=== PATIENT | female | born 1980 | race Caucasian/White ===

== ENCOUNTER 2017-02-28 01:06 | Emergency (ER) | payer MEDICAID, OTHER ==
[~2017-02-28] VITALS: Ht 162.6 cm; Wt 90.9 kg
[~2017-02-28 01:06] MED LIST: VENL75TA2 PO
[2017-02-28 02:56] LABS: BASO % 0.4 % (0.0-1.0); EOS # 0.2 K/mm3 (0.0-0.50); EOS % 2.2 % (0.0-3.0); LARGE UNSTAINED CELL # 0.1 K/mm3 (0.0-0.4); LARGE UNSTAINED CELL % 1.1 % (0.0-4.0); LYMPH % 33.5 % (24.0-44.0); MEAN CORPUSCULAR HEMOGLOBIN 33.6 pg (27.0-33.0); MEAN CORPUSCULAR VOLUME 98.8 fl (80.0-96.0); MONO # 0.6 K/mm3 (0.0-0.8); NEUTROPHILS # 6.7 K/mm3 (1.8-7.7); NEUTROPHILS % 57.9 % (36.0-66.0); PLATELET COUNT, AUTOMATED 364 k/mm3 (150-450); RED CELL DISTRIBUTION WIDTH 12.1 % (11.5-14.5); WHITE BLOOD COUNT 11.5 K/mm3 (4.0-10.0)
[2017-02-28] MEDS ORDERED: KETOROLAC 30 MG/ML VIAL (J1885) IV ONE (03:00)
[2017-02-28] MEDS ORDERED: MORPHINE 4 MG/ML 1ML SYRINGE IV PRN (03:00)
[2017-02-28] MEDS ORDERED: NS 1,000 ML IV ONE (03:00)
[2017-02-28] MEDS ORDERED: ONDANSETRON 4MG/2ML VIAL (J2405) IV ONE (03:00)
[2017-02-28 03:06] LABS: ALBUMIN 3.7 GM/DL (3.2-5.2); ALBUMIN/GLOBULIN RATIO 1.19 (1.00-1.93); ALKALINE PHOSPHATASE 84 U/L (45-117); ALT/SGPT 55 U/L (12-78); ANION GAP 10 MEQ/L (8-16); AST/SGOT 29 U/L (15-37); BILIRUBIN,DIRECT < 0.1 MG/DL (0.0-0.2); BILIRUBIN,TOTAL 0.2 MG/DL (0.2-1.0); BLOOD UREA NITROGEN 7 MG/DL (7-18); CALCIUM LEVEL 8.8 MG/DL (8.5-10.1); CARBON DIOXIDE LEVEL 23 MEQ/L (21-32); CHLORIDE LEVEL 108 MEQ/L (98-107); CREATININE FOR GFR 0.78 MG/DL (0.55-1.02); GLOMERULAR FILTRATION RATE > 60.0 (>60); GLUCOSE, FASTING 121 MG/DL (70-105); SODIUM LEVEL 141 MEQ/L (136-145); TOTAL PROTEIN 6.8 GM/DL (6.4-8.2)
[2017-02-28] MEDS ORDERED: FLOM5CAP PO (04:40)
[2017-02-28] MEDS ORDERED: PERC5TAB12 PO (04:40)
[2017-02-28] MEDS ORDERED: CIPR-249 PO (04:40)
[2017-02-28] MEDS ORDERED: TAMSULOSIN 0.4 MG CAP PO ONE (04:45)
[2017-02-28] MEDS ORDERED: OXYCODONE/APAP 5MG/325MG(BULK FOR ED) 1 TABLET PO ONE (04:45)
[2017-02-28 04:51] VITALS: BP 130/93
--- NOTE | 2017-03-01 10:39 | REPUSA ---
CLINICAL HISTORY: Abdominal pain. TECHNIQUE: Multiple axial, sagittal and coronal CT images were obtained through the abdomen and pelvi s without administration of oral or IV contrast material. COMMENTS: Comparison to the prior exam on 01/22/2013. 4.5 mm obstructing stone of the right ureter at L3. Mild right hydroureteronephrosis. Bilateral nonobstructing renal stones ranging in size between 3 and 11 mm. Thickened sigmoid colon. Sigmoid diverticulosis. Thickened bladder. The liver is of uniform attenuation without mass or defect. There is no intra or extrahepatic biliary ductal dilatation. The spleen is normal. The gallbladder is within normal limits. The pancreas is of normal contour and attenuation characteristics. There is no evidence of adrenal ma ss. There is no evidence for appendicitis. No evidence for small or large bowel obstruction. There is no evidence of abdominal ascites or lympha denopathy. There is no evidence of intrinsic or extrinsic bladder mass. There is no pelvic ascites or lymphadeno blanco. Images of the lung bases show no evidence of pleural or parenchymal mass. There are no pleural effusi ons. The bony structures are free of lytic or blastic lesions. Multilevel degenerative changes are seen in volving the thoracolumbar spine. Scattered calcifications are seen involving the aorta and major branches compatible with atherosclero sis. Fat containing umbilical hernia without incarceration. IMPRESSION: Obstructing stone of the right ureter at L3 level. Right hydroureteronephrosis. Thickened bladder. Thank you for your kind referral of this patient.
== END 2017-02-28 05:12 | disposition home or self-care (01) ==
LOC: M ED 01:06
DX: N20.1 Calculus of ureter (principal)
CPT/HCPCS: 36415; 74176; 80048; 80076; 81001; 83690; 85025; 87086; 93041; 96374; 96375; 99284; J1885; J2405

== ENCOUNTER → 2017-08-05 | Outpatient (CLI) | payer OTHER ==
[2017-08-05 14:03] LABS: BASO % 0.4 % (0.0-1.0); EOS # 0.2 10^3/uL (0.0-0.50); EOS % 1.8 % (0.0-3.0); HEMATOCRIT 44.5 % (36.0-47.0); HEMOGLOBIN 14.8 g/dl (12.0-16.0); IMMATURE GRANULOCYTE % 0.3 % (0-0); LYMPH # 3.2 10^3/uL (1.5-4.5); LYMPH % 29.8 % (24.0-44.0); MEAN CORPUSCULAR HEMOGLOBIN 33.4 pg (27.0-33.0); MEAN CORPUSCULAR HGB CONC 33.3 g/dl (32.0-36.5); MEAN CORPUSCULAR VOLUME 100.5 fl (80.0-96.0); MONO # 0.6 10^3/uL (0.0-0.8); NEUTROPHILS # 6.5 10^3/uL (1.8-7.7); NEUTROPHILS % 61.7 % (36.0-66.0); PLATELET COUNT, AUTOMATED 382 10^3/uL (150-450); RED BLOOD COUNT 4.43 10^6/uL (4.00-5.40); WHITE BLOOD COUNT 10.6 10^3/uL (4.0-10.0)
[2017-08-05 14:31] LABS: ALBUMIN 4.2 GM/DL (3.2-5.2); ALBUMIN/GLOBULIN RATIO 1.35 (1.00-1.93); ALKALINE PHOSPHATASE 88 U/L (45-117); ALT/SGPT 52 U/L (12-78); ANION GAP 6 MEQ/L (8-16); AST/SGOT 31 U/L (7-37); BILIRUBIN,TOTAL 0.6 MG/DL (0.2-1.0); BLOOD UREA NITROGEN 10 MG/DL (7-18); CARBON DIOXIDE LEVEL 27 MEQ/L (21-32); CHLORIDE LEVEL 105 MEQ/L (98-107); CREATININE FOR GFR 0.68 MG/DL (0.55-1.02); GLOMERULAR FILTRATION RATE > 60.0 (>60); GLUCOSE, FASTING 88 MG/DL (70-105); POTASSIUM SERUM 4.4 MEQ/L (3.5-5.1); SODIUM LEVEL 138 MEQ/L (136-145); THYROID STIMULATING HORMONE 0.845 uIU/ML (0.358-3.740); TOTAL PROTEIN 7.3 GM/DL (6.4-8.2)
[2017-08-06 14:16] LABS: ANTINUCLEAR ANTIBODIES DIRECT Negative (Negative)
== END ==
LOC: M SMT 08:59
DX: R53.83 Other fatigue (principal)
CPT/HCPCS: 84443

== ENCOUNTER → 2019-09-05 | Outpatient (REF) | payer OTHER ==
[~2019-09-05] MED LIST changes: +CIPR-249 PO; +FLOM0.4C39 PO; +PERC5TAB12 PO
[2019-09-05 13:11] LABS: BASO % 0.3 % (0.0-1.0); EOS # 0.1 10^3/uL (0.0-0.5); EOS % 1.5 % (0.0-3.0); HEMATOCRIT 44.6 % (36.0-47.0); HEMOGLOBIN 14.4 g/dl (12.0-15.5); LYMPH # 1.8 10^3/uL (1.5-5.0); LYMPH % 19.3 % (24.0-44.0); MEAN CORPUSCULAR HGB CONC 32.3 g/dl (32.0-36.5); MEAN CORPUSCULAR VOLUME 102.1 fl (80.0-96.0); MONO # 0.7 10^3/uL (0.0-0.8); NEUTROPHILS # 6.6 10^3/uL (1.5-8.5); NEUTROPHILS % 71.6 % (36.0-66.0); PLATELET COUNT, AUTOMATED 354 10^3/uL (150-450); RED BLOOD COUNT 4.37 10^6/uL (4.00-5.40); WHITE BLOOD COUNT 9.2 10^3/uL (4.0-10.0)
[2019-09-05 13:41] LABS: ALT/SGPT 37 U/L (12-78); BLOOD UREA NITROGEN 9 MG/DL (7-18); CALCIUM LEVEL 8.9 MG/DL (8.5-10.1); CARBON DIOXIDE LEVEL 27 MEQ/L (21-32); CHLORIDE LEVEL 105 MEQ/L (98-107); GLOMERULAR FILTRATION RATE > 60.0 (>60); GLUCOSE, FASTING 80 MG/DL (70-100); POTASSIUM SERUM 3.9 MEQ/L (3.5-5.1); SODIUM LEVEL 140 MEQ/L (136-145); TOTAL PROTEIN 6.7 GM/DL (6.4-8.2)
== END ==
LOC: M LABDRAW1 12:25
PROVIDERS: ATTEND Physician Assistant
DX: R53.83 Other fatigue (principal)

== ENCOUNTER → 2020-10-03 | Outpatient (REF) | payer OTHER | LOC: M LAB REF 17:10 | PROVIDERS: ATTEND Physician Assistant Medical | DX: N39.0 Urinary tract infection, site not specified (principal) ==

== ENCOUNTER → 2020-10-04 | Outpatient (CLI) | payer OTHER ==
--- NOTE | 2020-10-04 14:57 | REPMRS ---
Patient History The patient states she had a clinical breast exam in 08/2020. No known family history of cancer. No Hormone Replacement Therapy Digital Woman Screen Mammo: October 04, 2020 - Exam #: [id number] Bilateral CC and MLO view(s) were taken. Technologist: Kelly Agosto, Technologist No prior studies available for comparison. FINDINGS: There are scattered fibroglandular densities. The Volpara volumetric breast density category is: B. There is no evidence of dominant mass, architectural distortion, or grouped microcalcification typical of malignancy. 3-D tomosynthesis shows no additional findings. Assessment: BI-RADS/ACR category 1 mammogram. Negative Mammogram. Recommendation Routine screening mammogram of both breasts in 1 year (for women over age 40). This patient's [facility] Lifetime Breast Cancer RIsk is estimated at 11.4 %. This mammogram was interpreted with the aid of an FDA-approved computer-aided dectection system. Electronically Signed By: Harpreet Jean MD 10/04/20 [id number]
== END ==
LOC: M WHC 13:47
PROVIDERS: ATTEND Obstetrics & Gynecology
DX: Z12.31 Encounter for screening mammogram for malignant neoplasm of breast (principal)

== ENCOUNTER → 2021-08-12 | Outpatient (REF) | payer OTHER | LOC: M LAB REF 17:40 | PROVIDERS: ATTEND Nurse Practitioner Family | DX: R30.0 Dysuria (principal) ==

== ENCOUNTER → 2021-10-07 | Outpatient (REF) | payer OTHER | LOC: M LAB REF 16:52 | PROVIDERS: ATTEND Nurse Practitioner Family | DX: R35.0 Frequency of micturition (principal) ==

== ENCOUNTER → 2021-11-24 | Outpatient (REF) | payer OTHER | LOC: M LAB REF 16:43 | PROVIDERS: ATTEND Nurse Practitioner Family | DX: R35.0 Frequency of micturition (principal); N39.0 Urinary tract infection, site not specified ==

== ENCOUNTER → 2021-12-17 | Outpatient (REF) | payer OTHER ==
[2021-12-17 13:50] LABS: APPEARANCE, URINE HAZY (CLEAR); BACTERIA, URINE AUTO NEGATIVE (NEGATIVE); BILIRUBIN, URINE AUTO NEGATIVE (NEGATIVE); BLOOD, URINE BLOOD NEGATIVE (NEGATIVE); COLOR, URINE YELLOW (YELLOW); GLUCOSE, URINE (UA) AUTO NEGATIVE (NEGATIVE); KETONE, URINE AUTO NEGATIVE (NEGATIVE); LEUKOCYTE ESTERASE, URINE AUTO NEGATIVE (NEGATIVE); MUCUS, URINE SMALL (NEGATIVE); NITRITE, URINE AUTO NEGATIVE (NEGATIVE); PROTEIN, URINE AUTO NEGATIVE (NEGATIVE); RBC, URINE AUTO 0 /HPF (0-3); SPECIFIC GRAVITY URINE AUTO 1.018 (1.002-1.035); SQUAMOUS EPITHELIAL CELL UR AU 3 /HPF (0-6); UROBILINOGEN, URINE AUTO 0.2 mg/dL (0.0-2.0); WBC, URINE AUTO 1 /HPF (0-3)
== END ==
LOC: M SMT 12:57
PROVIDERS: ATTEND Nurse Practitioner Women's Health
DX: N39.0 Urinary tract infection, site not specified (principal)

== ENCOUNTER → 2021-12-24 | Outpatient (CLI) | payer OTHER | LOC: M PLAIMG 08:29 | PROVIDERS: ATTEND Nurse Practitioner Women's Health | DX: N20.0 Calculus of kidney (principal); N39.0 Urinary tract infection, site not specified; Z87.442 Personal history of urinary calculi ==

== ENCOUNTER → 2021-12-30 | Outpatient (REF) | payer OTHER ==
[2021-12-30 14:09] LABS: APPEARANCE, URINE CLOUDY (CLEAR); BACTERIA, URINE AUTO 2+ (NEGATIVE); BILIRUBIN, URINE AUTO NEGATIVE (NEGATIVE); BLOOD, URINE BLOOD 2+ (NEGATIVE); CALCIUM OXALATE CRYSTALS MODERATE; COLOR, URINE AMBER (YELLOW); GLUCOSE, URINE (UA) AUTO 3+ mg/dL (NEGATIVE); KETONE, URINE AUTO TRACE mg/dL (NEGATIVE); LEUKOCYTE ESTERASE, URINE AUTO 2+ (NEGATIVE); MUCUS, URINE MODERATE (NEGATIVE); NITRITE, URINE AUTO POSITIVE (NEGATIVE); PROTEIN, URINE AUTO 2+ mg/dL (NEGATIVE); RBC, URINE AUTO 97 /HPF (0-3); SPECIFIC GRAVITY URINE AUTO 1.022 (1.002-1.035); SQUAMOUS EPITHELIAL CELL UR AU 2 /HPF (0-6); WBC, URINE AUTO TNTC /HPF (0-3)
== END ==
LOC: M SMT 12:54
PROVIDERS: ATTEND Nurse Practitioner Women's Health
DX: R30.0 Dysuria (principal)

== ENCOUNTER → 2022-01-13 | Outpatient (REF) | payer OTHER ==
[2022-01-13 14:18] LABS: APPEARANCE, URINE HAZY (CLEAR); BACTERIA, URINE AUTO NEGATIVE (NEGATIVE); BILIRUBIN, URINE AUTO NEGATIVE (NEGATIVE); BLOOD, URINE BLOOD NEGATIVE (NEGATIVE); COLOR, URINE YELLOW (YELLOW); GLUCOSE, URINE (UA) AUTO NEGATIVE (NEGATIVE); KETONE, URINE AUTO NEGATIVE (NEGATIVE); LEUKOCYTE ESTERASE, URINE AUTO NEGATIVE (NEGATIVE); MUCUS, URINE SMALL (NEGATIVE); NITRITE, URINE AUTO NEGATIVE (NEGATIVE); PROTEIN, URINE AUTO NEGATIVE (NEGATIVE); RBC, URINE AUTO 0 /HPF (0-3); SPECIFIC GRAVITY URINE AUTO 1.009 (1.002-1.035); SQUAMOUS EPITHELIAL CELL UR AU 5 /HPF (0-6); UROBILINOGEN, URINE AUTO 0.2 mg/dL (0.0-2.0); WBC, URINE AUTO 2 /HPF (0-3)
== END ==
LOC: M SMT 12:59
PROVIDERS: ATTEND Nurse Practitioner Women's Health
DX: N39.0 Urinary tract infection, site not specified (principal)

== ENCOUNTER → 2022-02-02 | Outpatient (REF) | payer OTHER ==
[2022-02-02 13:32] LABS: APPEARANCE, URINE CLEAR (CLEAR); BACTERIA, URINE AUTO 2+ (NEGATIVE); BILIRUBIN, URINE AUTO NEGATIVE (NEGATIVE); BLOOD, URINE BLOOD 1+ (NEGATIVE); COLOR, URINE YELLOW (YELLOW); GLUCOSE, URINE (UA) AUTO NEGATIVE (NEGATIVE); KETONE, URINE AUTO NEGATIVE (NEGATIVE); LEUKOCYTE ESTERASE, URINE AUTO 2+ (NEGATIVE); MUCUS, URINE SMALL (NEGATIVE); NITRITE, URINE AUTO NEGATIVE (NEGATIVE); PROTEIN, URINE AUTO 1+ mg/dL (NEGATIVE); RBC, URINE AUTO 4 /HPF (0-3); SPECIFIC GRAVITY URINE AUTO 1.008 (1.002-1.035); SQUAMOUS EPITHELIAL CELL UR AU 2 /HPF (0-6); UROBILINOGEN, URINE AUTO 0.2 mg/dL (0.0-2.0); WBC, URINE AUTO 16 /HPF (0-3)
== END ==
LOC: M SMT 12:53
PROVIDERS: ATTEND Nurse Practitioner Women's Health
DX: R30.0 Dysuria (principal)

== ENCOUNTER → 2022-02-27 | Outpatient (REF) | payer OTHER ==
[2022-02-27 18:01] LABS: APPEARANCE, URINE HAZY (CLEAR); BACTERIA, URINE AUTO NEGATIVE (NEGATIVE); BILIRUBIN, URINE AUTO NEGATIVE (NEGATIVE); BLOOD, URINE BLOOD NEGATIVE (NEGATIVE); CALCIUM OXALATE CRYSTALS SMALL; COLOR, URINE YELLOW (YELLOW); GLUCOSE, URINE (UA) AUTO NEGATIVE (NEGATIVE); KETONE, URINE AUTO TRACE mg/dL (NEGATIVE); LEUKOCYTE ESTERASE, URINE AUTO NEGATIVE (NEGATIVE); MUCUS, URINE SMALL (NEGATIVE); NITRITE, URINE AUTO NEGATIVE (NEGATIVE); PROTEIN, URINE AUTO NEGATIVE (NEGATIVE); RBC, URINE AUTO 0 /HPF (0-3); SPECIFIC GRAVITY URINE AUTO 1.021 (1.002-1.035); SQUAMOUS EPITHELIAL CELL UR AU 3 /HPF (0-6); UROBILINOGEN, URINE AUTO 0.2 mg/dL (0.0-2.0); WBC, URINE AUTO 0 /HPF (0-3)
== END ==
LOC: M SMT 17:11
PROVIDERS: ATTEND Urology
DX: N39.0 Urinary tract infection, site not specified (principal)

== ENCOUNTER → 2022-06-04 | Outpatient (REF) | payer OTHER ==
[2022-06-04 12:52] LABS: CLOSTRIDIUM DIFFICILE PCR NEGATIVE (NEGATIVE)
== END ==
LOC: M LAB REF 09:23
PROVIDERS: ATTEND Internal Medicine Gastroenterology
DX: R19.7 Diarrhea, unspecified (principal)

== ENCOUNTER → 2022-06-09 | Outpatient (CLI) | payer OTHER | LOC: M LABSMTC 10:56 | PROVIDERS: ATTEND Anesthesiology | DX: Z01.812 Encounter for preprocedural laboratory examination (principal); Z11.52 Encounter for screening for COVID-19 ==

== ENCOUNTER 2022-06-12 09:43 | Day surgery (SDC) | payer OTHER ==
[~2022-06-12] VITALS: Ht 165.1 cm; Wt 89.8 kg
[2022-06-12] MEDS ORDERED: propofoL 500 MG/50 ML VIAL As Ordered ONE (12:29)
[2022-06-12] MEDS ORDERED: LIDOCAINE 2% 100MG/5ML SDV (FOR ANES.) As Ordered ONE (12:31)
[2022-06-12] MEDS ORDERED: fentaNYL 100 MCG/2 ML INJECTION As Ordered ONE (12:31)
[2022-06-12] MEDS ORDERED: ONDANSETRON 4MG 2ML VIAL As Ordered ONE (12:45)
[2022-06-12 13:58] VITALS: BP 131/83
== END 2022-06-12 14:09 | disposition home or self-care (01) ==
LOC: M OPP 09:43
PROVIDERS: ATTEND Internal Medicine Gastroenterology
DX: K63.5 Polyp of colon (principal); K52.9 Noninfective gastroenteritis and colitis, unspecified; K57.30 Diverticulosis of large intestine without perforation or abscess without bleeding; K64.8 Other hemorrhoids; K29.70 Gastritis, unspecified, without bleeding; K21.9 Gastro-esophageal reflux disease without esophagitis; F41.9 Anxiety disorder, unspecified; F32.A Depression, unspecified; F17.210 Nicotine dependence, cigarettes, uncomplicated; Z79.899 Other long term (current) drug therapy
CPT/HCPCS: 43239; 45380; 45385; 88305; J2405; J3010

== ENCOUNTER → 2022-07-16 | Outpatient (CLI) | payer OTHER ==
[2022-07-16 15:49] LABS: BLOOD UREA NITROGEN 11 MG/DL (9-23); CREATININE FOR GFR 0.58 MG/DL (0.55-1.30); GLOMERULAR FILTRATION RATE > 60.0 (>58)
== END ==
LOC: M PLALAB 11:35
PROVIDERS: ATTEND Internal Medicine Gastroenterology
DX: K86.81 Exocrine pancreatic insufficiency (principal)

== ENCOUNTER → 2022-08-12 | Outpatient (CLI) | payer OTHER ==
[~2022-08-12] MED LIST changes: +PROHANCE 279.3MG/ML 15ML VIAL ONE; +PROHANCE 279.3MG/ML 5ML VIAL ONE
== END ==
LOC: M PLAIMG 07:23
PROVIDERS: ATTEND Internal Medicine Gastroenterology
DX: R19.7 Diarrhea, unspecified (principal)
CPT/HCPCS: 74183; A9576

== ENCOUNTER → 2022-10-02 | Outpatient (CLI) | payer OTHER ==
[~2022-10-02] MED LIST changes: -PROHANCE 279.3MG/ML 15ML VIAL ONE; -PROHANCE 279.3MG/ML 5ML VIAL ONE
== END ==
LOC: M WHC 12:51
PROVIDERS: ATTEND Family Medicine
DX: Z12.31 Encounter for screening mammogram for malignant neoplasm of breast (principal)

== ENCOUNTER → 2022-11-06 | Outpatient (CLI) | payer OTHER ==
[2022-11-06 12:04] LABS: BASO % 0.3 % (0.0-1.0); EOS # 0.2 10^3/uL (0.0-0.5); EOS % 1.6 % (0.0-3.0); HEMATOCRIT 43.7 % (36.0-47.0); HEMOGLOBIN 14.4 g/dl (12.0-15.5); LYMPH # 3.2 10^3/uL (1.5-5.0); LYMPH % 33.8 % (24.0-44.0); MEAN CORPUSCULAR HEMOGLOBIN 32.7 pg (27.0-33.0); MEAN CORPUSCULAR VOLUME 99.1 fl (80.0-96.0); MONO # 0.6 10^3/uL (0.0-0.8); MONO % 6.2 % (2.0-8.0); NEUTROPHILS # 5.4 10^3/uL (1.5-8.5); NEUTROPHILS % 57.7 % (36.0-66.0); PLATELET COUNT, AUTOMATED 423 10^3/uL (150-450); RED BLOOD COUNT 4.41 10^6/uL (4.00-5.40); WHITE BLOOD COUNT 9.3 10^3/uL (4.0-10.0)
[2022-11-06 12:22] LABS: ALBUMIN 3.7 G/DL (3.2-5.2); ALKALINE PHOSPHATASE 58 U/L (46-116); ALT/SGPT 36 U/L (7.0-40); AST/SGOT 19 U/L (<34); BILIRUBIN,TOTAL 0.6 MG/DL (0.3-1.2); BLOOD UREA NITROGEN 9 MG/DL (9-23); CALCIUM LEVEL 9.2 MG/DL (8.5-10.1); CARBON DIOXIDE LEVEL 27 MMOL/L (20-31); CHLORIDE LEVEL 107 MMOL/L (98-107); CHOLESTEROL LEVEL 154 MG/DL (<200); CHOLESTEROL RISK RATIO 3.05 (<5); CREATININE FOR GFR 0.66 MG/DL (0.55-1.30); GLOMERULAR FILTRATION RATE > 60.0 (>58); GLUCOSE, FASTING 90 MG/DL (60-100); HDL CHOLESTEROL 50.4 MG/DL (>40); LDL CHOLESTEROL 87.2 MG/DL (<100); NON-HDL-C 103.6 MG/DL; POTASSIUM SERUM 4.2 MMOL/L (3.5-5.1); SODIUM LEVEL 141 MMOL/L (136-145); TOTAL PROTEIN 6.6 G/DL (5.7-8.2); TRIGLYCERIDES LEVEL 82 MG/DL (<150)
== END ==
LOC: M PLALAB 07:46
PROVIDERS: ATTEND Nurse Practitioner Family
DX: Z00.00 Encounter for general adult medical examination without abnormal findings (principal)

== ENCOUNTER → 2023-11-26 | Outpatient (CLI) | payer OTHER | LOC: M WHC 13:14 | PROVIDERS: ATTEND Registered Nurse | DX: Z12.31 Encounter for screening mammogram for malignant neoplasm of breast (principal) ==

== ENCOUNTER 2024-07-21 03:25 | Emergency (ER) | payer OTHER ==
[~2024-07-21] VITALS: Ht 165.1 cm; Wt 89.1 kg
[2024-07-21 03:29] VITALS: TEMP 96.8
[2024-07-21] MEDS ORDERED: VENL150C43 (03:30)
[2024-07-21] MEDS ORDERED: DEXTROAMP-AMPHETAMIN (03:30)
[2024-07-21] MEDS ORDERED: VENL37TA (03:30)
[2024-07-21] MEDS: KETOROLAC 30 MG/ML 1ML VIAL IV ONE (05:13)
[2024-07-21] MEDS: ONDANSETRON 4MG 2ML VIAL IV ONE (05:13)
[2024-07-21 05:30] LABS: BASO # 0.1 10^3/uL (0.0-0.2); BASO % 0.3 % (0.0-1.0); EOS # 0.1 10^3/uL (0.0-0.5); EOS % 0.7 % (0.0-3.0); HEMATOCRIT 43.1 % (36.0-47.0); HEMOGLOBIN 14.7 g/dl (12.0-15.5); LYMPH # 2.5 10^3/uL (1.5-5.0); LYMPH % 12.6 % (24.0-44.0); MEAN CORPUSCULAR HGB CONC 34.1 g/dl (32.0-36.5); MEAN CORPUSCULAR VOLUME 96.9 fl (80.0-96.0); MONO % 4.9 % (2.0-8.0); NEUTROPHILS # 16.2 10^3/uL (1.5-8.5); PLATELET COUNT, AUTOMATED 413 10^3/uL (150-450); RED BLOOD COUNT 4.45 10^6/uL (4.00-5.40)
[2024-07-21 05:58] LABS: BLOOD UREA NITROGEN 10 MG/DL (9-23); CALCIUM LEVEL 9.3 MG/DL (8.5-10.1); CARBON DIOXIDE LEVEL 24 MMOL/L (20-31); CHLORIDE LEVEL 108 MMOL/L (98-107); CREATININE FOR GFR 0.76 MG/DL (0.55-1.30); GLOMERULAR FILTRATION RATE > 60.0 (>58); GLUCOSE, FASTING 143 MG/DL (60-100); POTASSIUM SERUM 4.6 MMOL/L (3.5-5.1); SODIUM LEVEL 140 MMOL/L (136-145)
[2024-07-21 06:00] VITALS: BP 133/94; O2SAT 97
[2024-07-21] MEDS ORDERED: FLOM0.4C39 PO (06:22)
[2024-07-21] MEDS ORDERED: KETO10TAB PO (06:22)
[2024-07-21] MEDS ORDERED: CEPH500C PO (06:22)
[2024-07-21] MEDS ORDERED: ONDA-282 PO (06:22)
[2024-07-21] MEDS: TAMSULOSIN 0.4 MG CAP PO ONE (06:35)
[2024-07-21] MEDS: CEPHALEXIN 500 MG CAP PO ONE (06:36)
== END 2024-07-21 06:37 | disposition home or self-care (01) ==
LOC: M ED 03:25
DX: N20.1 Calculus of ureter (principal); I10 Essential (primary) hypertension; Z87.442 Personal history of urinary calculi
CPT/HCPCS: 74176; 80048; 81001; 85025; 96374; 96375; 99284; J1885; J2405

== ENCOUNTER → 2024-12-12 | Outpatient (REF) | payer OTHER ==
[~2024-12-12] MED LIST changes: +CEPH500C PO; +DEXTROAMP-AMPHETAMIN; -FLOM0.4C39 PO; +KETO10TAB PO; +ONDA-282 PO; +TAMS-18 PO; +VENL150C43; +VENL37TA
[2024-12-12 10:28] LABS: BASO # 0.1 10^3/uL (0.0-0.2); BASO % 0.5 % (0.0-1.0); EOS # 0.2 10^3/uL (0.0-0.5); EOS % 1.7 % (0.0-3.0); HEMATOCRIT 44.7 % (36.0-47.0); HEMOGLOBIN 15.1 g/dl (12.0-15.5); LYMPH # 3.6 10^3/uL (1.5-5.0); LYMPH % 29.7 % (24.0-44.0); MEAN CORPUSCULAR HEMOGLOBIN 33.1 pg (27.0-33.0); MEAN CORPUSCULAR HGB CONC 33.8 g/dl (32.0-36.5); MONO # 0.7 10^3/uL (0.0-0.8); MONO % 5.4 % (2.0-8.0); NEUTROPHILS # 7.5 10^3/uL (1.5-8.5); NEUTROPHILS % 62.4 % (36.0-66.0); PLATELET COUNT, AUTOMATED 421 10^3/uL (150-450); RED BLOOD COUNT 4.56 10^6/uL (4.00-5.40)
[2024-12-12 10:49] LABS: ALBUMIN 3.8 G/DL (3.2-5.2); ALKALINE PHOSPHATASE 62 U/L (35-104); ALT/SGPT 39 U/L (7.0-40); AST/SGOT 22 U/L (<34); BILIRUBIN,TOTAL 0.5 MG/DL (0.3-1.2); BLOOD UREA NITROGEN 7 MG/DL (9-23); CALCIUM LEVEL 9.6 MG/DL (8.5-10.1); CARBON DIOXIDE LEVEL 29 MMOL/L (20-31); CHLORIDE LEVEL 107 MMOL/L (98-107); CHOLESTEROL LEVEL 174 MG/DL (<200); CREATININE FOR GFR 0.73 MG/DL (0.55-1.30); GLOMERULAR FILTRATION RATE > 90.0 (>58); GLUCOSE, FASTING 94 MG/DL (60-100); LDL CHOLESTEROL 99.6 MG/DL (<100); POTASSIUM SERUM 4.7 MMOL/L (3.5-5.1); SODIUM LEVEL 142 MMOL/L (136-145); TOTAL PROTEIN 6.5 G/DL (5.7-8.2); TRIGLYCERIDES LEVEL 82 MG/DL (<150)
== END ==
LOC: M PLALAB 10:09
PROVIDERS: ATTEND Registered Nurse
DX: Z00.00 Encounter for general adult medical examination without abnormal findings (principal)

== ENCOUNTER 2025-05-07 14:07 | Emergency (ER) | payer OTHER ==
[~2025-05-07] VITALS: Ht 165.1 cm; Wt 90.8 kg
[2025-05-07] MEDS ORDERED: IBUP600T42 PO (16:27)
[2025-05-07 16:36] VITALS: BP 131/88; TEMP 98.1; O2SAT 98
== END 2025-05-07 16:40 | disposition home or self-care (01) ==
LOC: M ED 14:07
DX: S60.222A Contusion of left hand, initial encounter (principal); S93.401A Sprain of unspecified ligament of right ankle, initial encounter; S83.92XA Sprain of unspecified site of left knee, initial encounter; W01.198A Fall on same level from slipping, tripping and stumbling with subsequent striking against other object, initial encounter; M25.469 Effusion, unspecified knee; F17.200 Nicotine dependence, unspecified, uncomplicated; Y92.9 Unspecified place or not applicable; Y93.K1 Activity, walking an animal; Y99.9 Unspecified external cause status; Z79.899 Other long term (current) drug therapy; Z79.2 Long term (current) use of antibiotics; Z79.1 Long term (current) use of non-steroidal anti-inflammatories (NSAID)

== ENCOUNTER → 2025-05-22 | Outpatient (CLI) | payer OTHER ==
[~2025-05-22] MED LIST changes: +IBUP600T42 PO
== END ==
LOC: M PLAIMG 10:39
PROVIDERS: ATTEND Registered Nurse
DX: M54.50 Low back pain, unspecified (principal); M25.571 Pain in right ankle and joints of right foot; M47.816 Spondylosis without myelopathy or radiculopathy, lumbar region